=== PATIENT | male | born 1965 | race Caucasian/White ===

== ENCOUNTER 2020-04-19 18:59 | Emergency (ER) | payer BC ==
[~2020-04-19] VITALS: Ht 193 cm; Wt 86.2 kg
== END 2020-04-19 22:30 | disposition home or self-care (01) ==
LOC: ER 18:59
DX: S01.511A Laceration without foreign body of lip, initial encounter (principal); V86.52XA Driver of snowmobile injured in nontraffic accident, initial encounter
CPT/HCPCS: 12014; 99284-25